=== PATIENT | male | born 1955 | race Caucasian/White ===

== ENCOUNTER → 2020-08-24 10:58 | Outpatient (BNVA) | payer OTHER, SELFPAY | PROVIDERS: PCP Internal Medicine; Visit Provider Urology ==

== ENCOUNTER 2022-12-08 13:01 | Outpatient (REF) | payer MEDICARE, SELFPAY ==
[2022-12-08 13:42] LABS: MANUAL DIFF FLAG NO
[2022-12-08 13:48] LABS: Basophils Percent Auto 0.4 % (0-2); Eosinophils Absolute Auto 0.1 X10*3/uL (0.0-0.4); Eosinophils Percent Auto 0.6 % (0-4); Hematocrit 39.5 % (42.0-52.0); Hemoglobin 12.6 g/dl (14.0-18.0); Imm Gran Abs Auto 0.03 X10*3/uL (0.00-0.03); Imm Gran Pct Auto 0.4 % (0.0-0.4); Lymphocytes Absolute Auto 1.2 X10*3/uL (1.2-4.9); Lymphocytes Percent Auto 13.9 % (20-40); Mean Corpuscular HGB Conc 31.9 g/dl (31.0-36.0); Mean Corpuscular Hemoglobin 21.1 pg (27.0-33.0); Mean Corpuscular Volume 66.2 fL (80.0-98.0); Monocytes Absolute Auto 0.7 X10*3/uL (0.1-1.2); Monocytes Percent Auto 8.2 % (2-11); Neutrophils Absolute Auto 6.6 x10*3/uL (2.0-8.3); Neutrophils Percent Auto 76.5 % (45-73); Platelet Count 138 X10*3/uL (160-400); Red Blood Count 5.97 X10*6/uL (4.60-5.80); White Blood Count 8.6 X10*3/uL (4.8-10.8)
== END 2022-12-08 13:02 | disposition home or self-care (01) ==
LOC: HO.BBR 13:01
PROVIDERS: PCP Internal Medicine; Visit Provider Hospitalist
DX: E83.110 Hereditary hemochromatosis (principal)
CPT/HCPCS: 36415; 85025

== ENCOUNTER 2023-02-04 10:56 | Outpatient (REF) | payer MEDICARE, SELFPAY ==
[2023-02-04 11:32] LABS: MANUAL DIFF FLAG NO
[2023-02-04 11:38] LABS: Basophils Percent Auto 0.5 % (0-2); Eosinophils Absolute Auto 0.1 X10*3/uL (0.0-0.4); Eosinophils Percent Auto 0.7 % (0-4); Hematocrit 42.1 % (42.0-52.0); Hemoglobin 13.5 g/dl (14.0-18.0); Imm Gran Abs Auto 0.02 X10*3/uL (0.00-0.03); Imm Gran Pct Auto 0.2 % (0.0-0.4); Lymphocytes Absolute Auto 1.6 X10*3/uL (1.2-4.9); Lymphocytes Percent Auto 19.2 % (20-40); Mean Corpuscular HGB Conc 32.1 g/dl (31.0-36.0); Mean Corpuscular Hemoglobin 21.1 pg (27.0-33.0); Mean Corpuscular Volume 65.8 fL (80.0-98.0); Monocytes Absolute Auto 0.8 X10*3/uL (0.1-1.2); Monocytes Percent Auto 9.1 % (2-11); Neutrophils Absolute Auto 5.8 x10*3/uL (2.0-8.3); Neutrophils Percent Auto 70.3 % (45-73); Platelet Count 153 X10*3/uL (160-400); Red Cell Distribution Width 17.4 % (11.0-16.0); White Blood Count 8.2 X10*3/uL (4.8-10.8)
[2023-02-04 12:20] LABS: Iron 173 mcg/dL (45-160); Percent Iron Saturation 66 % (15-50); Total Iron Binding Capacity 264 mcg/dL (228-428); Unsaturated Iron Binding 91 ug/dL
== END 2023-02-04 10:57 | disposition home or self-care (01) ==
LOC: HO.BBR 10:56
PROVIDERS: PCP Internal Medicine; Visit Provider Hospitalist
DX: E83.110 Hereditary hemochromatosis (principal)
CPT/HCPCS: 36415; 83540; 85025

== ENCOUNTER 2023-04-01 14:47 | Outpatient (REF) | payer MEDICARE, SELFPAY ==
[2023-04-01 15:09] LABS: MANUAL DIFF FLAG NO
[2023-04-01 15:14] LABS: Basophils Percent Auto 0.4 % (0-2); Eosinophils Absolute Auto 0.1 X10*3/uL (0.0-0.4); Eosinophils Percent Auto 1.2 % (0-4); Hematocrit 40.4 % (42.0-52.0); Hemoglobin 13.1 g/dl (14.0-18.0); Imm Gran Abs Auto 0.02 X10*3/uL (0.00-0.03); Imm Gran Pct Auto 0.3 % (0.0-0.4); Lymphocytes Absolute Auto 1.3 X10*3/uL (1.2-4.9); Lymphocytes Percent Auto 17.1 % (20-40); Mean Corpuscular HGB Conc 32.4 g/dl (31.0-36.0); Mean Corpuscular Hemoglobin 21.3 pg (27.0-33.0); Mean Corpuscular Volume 65.7 fL (80.0-98.0); Monocytes Absolute Auto 0.6 X10*3/uL (0.1-1.2); Monocytes Percent Auto 7.7 % (2-11); Neutrophils Absolute Auto 5.6 x10*3/uL (2.0-8.3); Neutrophils Percent Auto 73.3 % (45-73); Platelet Count 150 X10*3/uL (160-400); Red Blood Count 6.15 X10*6/uL (4.60-5.80); Red Cell Distribution Width 15.9 % (11.0-16.0); White Blood Count 7.7 X10*3/uL (4.8-10.8)
== END 2023-04-01 14:48 | disposition home or self-care (01) ==
LOC: HO.BBR 14:47
PROVIDERS: PCP Internal Medicine; Visit Provider Hospitalist
DX: E83.110 Hereditary hemochromatosis (principal)
CPT/HCPCS: 36415; 85025

== ENCOUNTER 2023-05-14 14:05 | Outpatient (REF) | payer MEDICARE, SELFPAY ==
[2023-05-14 14:26] LABS: MANUAL DIFF FLAG NO
[2023-05-14 14:29] LABS: Basophils Percent Auto 0.4 % (0-2); Eosinophils Absolute Auto 0.1 X10*3/uL (0.0-0.4); Eosinophils Percent Auto 1.1 % (0-4); Hematocrit 40.3 % (42.0-52.0); Hemoglobin 12.9 g/dl (14.0-18.0); Imm Gran Abs Auto 0.02 X10*3/uL (0.00-0.03); Imm Gran Pct Auto 0.3 % (0.0-0.4); Lymphocytes Absolute Auto 1.4 X10*3/uL (1.2-4.9); Lymphocytes Percent Auto 18.2 % (20-40); Mean Corpuscular Hemoglobin 21.4 pg (27.0-33.0); Mean Corpuscular Volume 66.9 fL (80.0-98.0); Monocytes Absolute Auto 0.7 X10*3/uL (0.1-1.2); Monocytes Percent Auto 9.4 % (2-11); Neutrophils Absolute Auto 5.3 x10*3/uL (2.0-8.3); Neutrophils Percent Auto 70.6 % (45-73); Platelet Count 154 X10*3/uL (160-400); Red Blood Count 6.02 X10*6/uL (4.60-5.80); Red Cell Distribution Width 17.4 % (11.0-16.0); White Blood Count 7.4 X10*3/uL (4.8-10.8)
[2023-05-14 15:19] LABS: Ferritin 416 ng/mL (20-250)
== END 2023-05-14 14:06 | disposition home or self-care (01) ==
LOC: HO.BBR 14:05
PROVIDERS: PCP Internal Medicine; Visit Provider Hospitalist
DX: E83.110 Hereditary hemochromatosis (principal)
CPT/HCPCS: 36415; 82728; 85025

== ENCOUNTER 2023-06-25 14:13 | Outpatient (REF) | payer MEDICARE, SELFPAY ==
[2023-06-25 14:35] LABS: MANUAL DIFF FLAG NO
[2023-06-25 14:39] LABS: Basophils Percent Auto 0.6 % (0-2); Eosinophils Absolute Auto 0.1 X10*3/uL (0.0-0.4); Eosinophils Percent Auto 1.5 % (0-4); Hematocrit 40.7 % (42.0-52.0); Hemoglobin 13.3 g/dl (14.0-18.0); Imm Gran Abs Auto 0.02 X10*3/uL (0.00-0.03); Imm Gran Pct Auto 0.3 % (0.0-0.4); Lymphocytes Absolute Auto 1.3 X10*3/uL (1.2-4.9); Lymphocytes Percent Auto 19.8 % (20-40); Mean Corpuscular HGB Conc 32.7 g/dl (31.0-36.0); Mean Corpuscular Hemoglobin 21.5 pg (27.0-33.0); Mean Corpuscular Volume 65.6 fL (80.0-98.0); Monocytes Absolute Auto 0.6 X10*3/uL (0.1-1.2); Monocytes Percent Auto 8.7 % (2-11); Neutrophils Absolute Auto 4.7 x10*3/uL (2.0-8.3); Neutrophils Percent Auto 69.1 % (45-73); Platelet Count 158 X10*3/uL (160-400); Red Cell Distribution Width 16.9 % (11.0-16.0); White Blood Count 6.8 X10*3/uL (4.8-10.8)
[2023-06-25 16:36] LABS: Iron 142 mcg/dL (45-160); Percent Iron Saturation 53 % (15-50); Total Iron Binding Capacity 269 mcg/dL (228-428); Unsaturated Iron Binding 127 ug/dL
[2023-06-25 16:47] LABS: Ferritin 422 ng/mL (20-250)
== END 2023-06-25 14:14 | disposition home or self-care (01) ==
LOC: HO.BBR 14:13
PROVIDERS: PCP Internal Medicine; Visit Provider Hospitalist
DX: E83.110 Hereditary hemochromatosis (principal)
CPT/HCPCS: 36415; 82728; 83540; 85025

== ENCOUNTER 2023-08-07 13:05 | Outpatient (REF) | payer MEDICARE, SELFPAY ==
[2023-08-07 13:38] LABS: Basophils Percent Auto 0.4 % (0-2); Eosinophils Absolute Auto 0.1 X10*3/uL (0.0-0.4); Eosinophils Percent Auto 1.2 % (0-4); Hematocrit 39.6 % (42.0-52.0); Hemoglobin 12.8 g/dl (14.0-18.0); Imm Gran Abs Auto 0.02 X10*3/uL (0.00-0.03); Imm Gran Pct Auto 0.3 % (0.0-0.4); Lymphocytes Absolute Auto 1.3 X10*3/uL (1.2-4.9); Lymphocytes Percent Auto 17.9 % (20-40); MANUAL DIFF FLAG SCAN; Mean Corpuscular HGB Conc 32.3 g/dl (31.0-36.0); Mean Corpuscular Hemoglobin 21.7 pg (27.0-33.0); Monocytes Absolute Auto 0.7 X10*3/uL (0.1-1.2); Neutrophils Absolute Auto 5.2 x10*3/uL (2.0-8.3); Neutrophils Percent Auto 71.2 % (45-73); PLT CLUMP 1; Red Blood Count 5.91 X10*6/uL (4.60-5.80); Red Cell Distribution Width 16.6 % (11.0-16.0); SCAN SMEAR FLAG 1
[2023-08-07 13:39] LABS: White Blood Count 7.3 X10*3/uL (4.8-10.8)
[2023-08-07 14:14] LABS: Platelet Count 147 X10*3/uL (160-400)
[2023-08-07 14:15] LABS: SLIDE REVIEW VERIFIED
[2023-08-07 14:53] LABS: Ferritin 352 ng/mL (20-250)
== END 2023-08-07 13:06 | disposition home or self-care (01) ==
LOC: HO.BBR 13:05
PROVIDERS: PCP Internal Medicine; Visit Provider Hospitalist
DX: E83.110 Hereditary hemochromatosis (principal)
CPT/HCPCS: 36415; 82728; 85025

== ENCOUNTER 2023-09-16 08:38 | Outpatient (REF) | payer MEDICARE, SELFPAY ==
--- NOTE | ~2023-09-16 | MM_ITS ---
EXAMINATION: BONE DENSITOMETRY CLINICAL INDICATION: Age-related osteoporosis without current pathological fracture. COMPARISON: This is the patient's baseline examination. TECHNIQUE: Using a [employer] DXA System (software version: 13.1) manufactured by [employer], dual-energy x-ray absorptiometry was performed of the lumbar spine and left hip. The images are of good technical quality. Summary results are attached. FINDINGS: LEFT FEMUR, NECK: BMD 1.020 g/cm2, Z-score 0.5, T-score -0.4, normal. LEFT FEMUR, TOTAL: BMD 1.113 g/cm2, Z-score 0.5, T-score 0.1, normal. AP SPINE L1-L4: BMD 1.131 g/cm2, Z-score -0.6, T-score -0.7, normal. IDENTIFIED RISK FACTORS: Low calcium intake. HISTORY OF FRACTURE: None listed. MEDICATIONS: Calcium supplements or multivitamin, vitamin D. MM/XR DEXA axial skeleton IMPRESSION: 1. DIAGNOSIS: Normal bone density based on the lowest T-score value of -0.7 in the lumbar spine applying World Health Organization criteria. 2. 10-YEAR FRACTURE RISK PREDICTION, FRAX: According to the guidelines, FRAX calculation should only be performed on patients in the osteopenia bone density category. Therefore, FRAX was not performed on this patient. 3. Treatment Recommendations: NOF guidelines recommend consideration for treatment in postmenopausal women and men age 50 and older presenting with the following: -A hip or vertebral (clinical or morphometric) fracture. -T-score less than or equal to -2.5 at the femoral neck or spine after appropriate evaluation to exclude secondary causes. -Low bone mass at the hip or spine and a 10-year fracture probability by FRAX of greater than or equal to 3% for hip fracture or greater than or equal to 20% for major osteoporotic fracture based on the [place] adapted WHO algorithm. 4. Other Recommendations: All treatment decisions require clinical judgment and consideration of individual patient factors, including patient preferences, comorbidities, previous drug use, risk factors not captured in the FRAX model (e.g. frailty, falls, vitamin D deficiency, increased bone turnover, interval significant decline in bone density) and possible under or overestimation of fracture risk by FRAX. FUTURE SCAN RECOMMENDATION: People with diagnosed cases of osteoporosis or at high risk for fracture should have regular bone mineral density tests. For patients eligible for Medicare, routine testing is allowed once every 2 years. The testing frequency can be increased to one year for patients who have rapidly progressing disease, those who are receiving or discontinuing medical therapy to restore bone mass, or have additional risk factors.
--- NOTE | 2023-09-16 09:41 | CA_ITS ---
Transthoracic Echocardiogram Patient (Last, First, Middle): Ben Santos, Gender: Male Date of : 1955 Age: 68 Procedure Date: 09/16/2023 Procedure Type: Transthoracic Echocardiogram Location: OP Height: 177.8 cm Weight: 87.09 kg BSA: 2.05 m2 Heart Rate: bpm BP: 135 / 70 mmHg Frit Mixer: JAYME Referring MD: Gustavo Felton MD Electro Optical Engineer: Stevan Hopson MD Symptoms: HEMOCHROMATOSIS ,OSTEOPOROSIS Study Quality: Adequate ECG Rhythm: Sinus Conclusions: - 1. Normal LV ejection fraction 55-60% with normal filling pattern 2. Normal cardiac valvular Doppler 3. No gross pericardial effusion Findings Left Ventricle Normal left ventricular size, thickness, and systolic function. The visually estimated ejection fraction is between 55-60%. Spectral Doppler is indicative of a normal filling pattern. Right Ventricle Normal right ventricular cavity size and systolic function. Atria The left atrium is normal in size. Interatrial shunt cannot be excluded. The right atrium is normal in size. Aortic Valve The aortic valve structure and function is likely normal. There is no aortic valve stenosis. There is no aortic valve regurgitation. Mitral Valve Likely normal mitral valve structure and function. There is trace mitral valve regurgitation. There is no mitral valve stenosis. Pulmonic Valve The pulmonic valve is likely normal. There is trace pulmonic valve regurgitation. Tricuspid Valve The tricuspid valve was not well visualized. Tricuspid regurgitation envelope is inadequate for calculation of right ventricular systolic pressure. Normal right atrial pressure. Great Vessels All visible segments of the aorta are normal in size. The pulmonary artery was not well visualized. There is no dilatation of the ascending aorta measuring 3.10 cm. Venous The inferior vena cava is normal in size and collapses greater than 50% with inspiration. Pericardium/Pleural There is no evidence of pericardial effusion. Prior Study Comparison No prior study available for comparison. Measurements 2D Linear Measurements IVSd: 0.93 0.6-0.9/0.6-1.0 cm LVIDd: 4.97 3.9-5.3/4.2-5.9 cm LVIDd Index: 2.42 2.4-3.2/2.2-3.1 cm/m2 LVIDs: 3.28 2.0-3.6 cm LVPWd: 1.00 0.7-1.1 cm LA Diam: 3.80 2.7-3.8/3.0-4.0 cm LAIDs Index: 1.85 1.5-2.3 cm/m2 LV Mass: 213.98 67-162/88-224 g LV Mass Index: 104.38 43-95/49-115 g/m2 LVOT Diam: 2.10 3.0+(-)1.3 cm 2D Systolic Function EF 4C: 59.60 >55% EF 2C: 58.60 >55% EF BiP: 57.40 >55% Mitral Valve MV Pk E: 0.71 MV PK A: 0.58 MV Decel Time: 216.00 E/A: 1.20 E'Lateral: 10.30 E'Medial: 7.94 E/E' Med: 8.90 E/E' Lat: 6.90 PHT: 63.00 MVA PHT: 3.49 Decel Sweet [place]: 3.27 Aortic Valve AoV Pk Dimas: 1.25 AoV Mn Dimas: 0.83 AoV VTI: 0.28 AoV Pk Grad: 6.00 Aov Mn Grad: 3.00 AMANDO Cont.VTI: 2.62 LVOT LVOT Pk Dimas: 0.80 LVOT Mn Dimas: 0.53 LVOT VTI: 0.21 LVOT Pk Grad: 3.00 LVOT Mn Grad: 1.00 LVOT Diam: 2.10 LVOT Area: 3.46 Diastolic Function MV Pk E: 0.71 MV Pk A: 0.58 E/A: 1.20 E'Medial: 7.94 E/E' Med: 8.90 E' Laterial: 10.30 E/E' Lat: 6.90 Right Ventricle TAPSE (mm): 26.70 TVS' Dimas: 12.30 Great Vessels Aorta Sinus of Valsalva: 3.07 2.0-3.5 cm Ao Asc: 3.10 2.1-3.4 cm Updated in Other Vendor System with Status of Final Stevan Hopson MD electronically signed on 09/16/2023 2:41:55 PM with status of Final
== END 2023-09-16 08:39 | disposition home or self-care (01) ==
LOC: HO.MAMMO 08:38
PROVIDERS: PCP Internal Medicine; Visit Provider Hospitalist
DX: E83.119 Hemochromatosis, unspecified (principal); M81.0 Age-related osteoporosis without current pathological fracture
CPT/HCPCS: 77080; 93306

== ENCOUNTER → 2023-09-16 09:41 | Outpatient (BNV) | payer MEDICARE, SELFPAY | PROVIDERS: PCP Internal Medicine; Visit Provider Internal Medicine Cardiovascular Disease | DX: E83.119 Hemochromatosis, unspecified (principal) | CPT/HCPCS: 93306 ==

== ENCOUNTER 2023-09-22 14:02 | Outpatient (REF) | payer MEDICARE, SELFPAY ==
[2023-09-22 14:19] LABS: MANUAL DIFF FLAG NO
[2023-09-22 14:22] LABS: Basophils Percent Auto 0.4 % (0-2); Eosinophils Absolute Auto 0.1 X10*3/uL (0.0-0.4); Eosinophils Percent Auto 1.5 % (0-4); Hematocrit 39.6 % (42.0-52.0); Hemoglobin 12.8 g/dl (14.0-18.0); Imm Gran Abs Auto 0.02 X10*3/uL (0.00-0.03); Imm Gran Pct Auto 0.3 % (0.0-0.4); Lymphocytes Absolute Auto 1.3 X10*3/uL (1.2-4.9); Lymphocytes Percent Auto 19.8 % (20-40); Mean Corpuscular HGB Conc 32.3 g/dl (31.0-36.0); Mean Corpuscular Hemoglobin 21.4 pg (27.0-33.0); Mean Corpuscular Volume 66.3 fL (80.0-98.0); Monocytes Absolute Auto 0.6 X10*3/uL (0.1-1.2); Monocytes Percent Auto 8.9 % (2-11); Neutrophils Absolute Auto 4.7 x10*3/uL (2.0-8.3); Neutrophils Percent Auto 69.1 % (45-73); Platelet Count 155 X10*3/uL (160-400); Red Blood Count 5.97 X10*6/uL (4.60-5.80); Red Cell Distribution Width 16.4 % (11.0-16.0); White Blood Count 6.8 X10*3/uL (4.8-10.8)
[2023-09-22 15:15] LABS: Ferritin 349 ng/mL (20-250)
== END 2023-09-22 14:03 | disposition home or self-care (01) ==
LOC: HO.BBR 14:02
PROVIDERS: PCP Internal Medicine; Visit Provider Hospitalist
DX: E83.110 Hereditary hemochromatosis (principal)
CPT/HCPCS: 36415; 82728; 85025

== ENCOUNTER 2023-11-13 14:02 | Outpatient (REF) | payer MEDICARE, SELFPAY ==
[2023-11-13 14:16] LABS: Eosinophils Absolute Auto 0.1 X10*3/uL (0.0-0.4); Hemoglobin 12.9 g/dl (14.0-18.0); Imm Gran Abs Auto 0.02 X10*3/uL (0.00-0.03); Imm Gran Pct Auto 0.3 % (0.0-0.4); MANUAL DIFF FLAG SCAN; Monocytes Absolute Auto 0.7 X10*3/uL (0.1-1.2); SCAN SMEAR FLAG 1
[2023-11-13 14:18] LABS: Basophils Percent Auto 0.3 % (0-2); Hematocrit 39.3 % (42.0-52.0); Lymphocytes Absolute Auto 1.3 X10*3/uL (1.2-4.9); Lymphocytes Percent Auto 18.7 % (20-40); Mean Corpuscular HGB Conc 32.8 g/dl (31.0-36.0); Mean Corpuscular Hemoglobin 21.8 pg (27.0-33.0); Mean Corpuscular Volume 66.4 fL (80.0-98.0); Monocytes Percent Auto 9.4 % (2-11); Neutrophils Absolute Auto 4.9 x10*3/uL (2.0-8.3); Neutrophils Percent Auto 70.3 % (45-73); PLT CLUMP 1; Red Blood Count 5.92 X10*6/uL (4.60-5.80)
[2023-11-13 14:19] LABS: PLT ABN DIST 1
[2023-11-13 14:41] LABS: Platelet Count 142 X10*3/uL (160-400); SLIDE REVIEW VERIFIED
[2023-11-13 15:16] LABS: Ferritin 283 ng/mL (20-250)
== END 2023-11-13 14:03 | disposition home or self-care (01) ==
LOC: HO.BBR 14:02
PROVIDERS: PCP Internal Medicine; Visit Provider Hospitalist
DX: E83.110 Hereditary hemochromatosis (principal)
CPT/HCPCS: 36415; 82728; 85025

== ENCOUNTER 2023-12-24 15:26 | Outpatient (REF) | payer MEDICARE, SELFPAY ==
[2023-12-24 15:45] LABS: MANUAL DIFF FLAG NO
[2023-12-24 15:52] LABS: Basophils Percent Auto 0.5 % (0-2); Eosinophils Absolute Auto 0.1 X10*3/uL (0.0-0.4); Eosinophils Percent Auto 0.9 % (0-4); Hematocrit 38.7 % (42.0-52.0); Hemoglobin 12.7 g/dl (14.0-18.0); Imm Gran Abs Auto 0.03 X10*3/uL (0.00-0.03); Imm Gran Pct Auto 0.4 % (0.0-0.4); Lymphocytes Absolute Auto 1.3 X10*3/uL (1.2-4.9); Lymphocytes Percent Auto 16.7 % (20-40); Mean Corpuscular HGB Conc 32.8 g/dl (31.0-36.0); Mean Corpuscular Hemoglobin 21.7 pg (27.0-33.0); Monocytes Absolute Auto 0.7 X10*3/uL (0.1-1.2); Monocytes Percent Auto 8.9 % (2-11); Neutrophils Absolute Auto 5.7 x10*3/uL (2.0-8.3); Neutrophils Percent Auto 72.6 % (45-73); Platelet Count 157 X10*3/uL (160-400); Red Blood Count 5.86 X10*6/uL (4.60-5.80); Red Cell Distribution Width 15.9 % (11.0-16.0); White Blood Count 7.9 X10*3/uL (4.8-10.8)
[2023-12-24 16:36] LABS: Ferritin 250 ng/mL (20-250)
== END 2023-12-24 15:27 | disposition home or self-care (01) ==
LOC: HO.BBR 15:26
PROVIDERS: PCP Internal Medicine; Visit Provider Hospitalist
DX: E83.110 Hereditary hemochromatosis (principal)
CPT/HCPCS: 36415; 82728; 85025

== ENCOUNTER 2024-02-11 13:06 | Outpatient (REF) | payer MEDICARE, SELFPAY ==
[2024-02-11 13:16] LABS: MANUAL DIFF FLAG NO
[2024-02-11 13:20] LABS: Basophils Absolute Auto 0.1 X10*3/uL (0.0-0.2); Basophils Percent Auto 0.7 % (0-2); Eosinophils Absolute Auto 0.1 X10*3/uL (0.0-0.4); Eosinophils Percent Auto 1.4 % (0-4); Hematocrit 42.9 % (42.0-52.0); Hemoglobin 13.8 g/dl (14.0-18.0); Imm Gran Abs Auto 0.02 X10*3/uL (0.00-0.03); Imm Gran Pct Auto 0.3 % (0.0-0.4); Lymphocytes Absolute Auto 1.5 X10*3/uL (1.2-4.9); Lymphocytes Percent Auto 20.7 % (20-40); Mean Corpuscular HGB Conc 32.2 g/dl (31.0-36.0); Mean Corpuscular Hemoglobin 21.4 pg (27.0-33.0); Mean Corpuscular Volume 66.6 fL (80.0-98.0); Monocytes Absolute Auto 0.6 X10*3/uL (0.1-1.2); Monocytes Percent Auto 8.9 % (2-11); Neutrophils Absolute Auto 4.8 x10*3/uL (2.0-8.3); Platelet Count 158 X10*3/uL (160-400); Red Blood Count 6.44 X10*6/uL (4.60-5.80); Red Cell Distribution Width 17.5 % (11.0-16.0); White Blood Count 7.1 X10*3/uL (4.8-10.8)
[2024-02-11 14:11] LABS: Ferritin 214 ng/mL (20-250)
--- OUTSIDE RECORDS SUMMARY | 2024-02-17 02:17 | XMS_ITS | Continuity of Care Document ---
Author Organization [facility] Address [address] [place] [address]- Care Team Providers Care Drilling Machine Operator Name Role Phone Devin Dent MD Primary Care Physician Encounter [facility] [id number] Date(s): 01/28/24 - 01/28/24 [facility] [address] [place] [address]- Encounter Type: Results Only Allergies, Adverse Reactions, Alerts Substance Criticality Severity Reaction Reaction Severity Status penicillins lips swell Active [place] migraine, vomiting A ctive Other Food Allergy MSG - angelika axel, vomiting Active Lactose Active Medications amLODIPine 10 mg oral tablet 10 mg, 1, tablet, By Mouth, Daily, # 30 tablet, Refills 0, Maintenance, 10/17/22 9:19:00 AM EDT, Partial fill upon patient request if the prescription is for a schedule II opioid drug. Start Date: 10/17/22 Status: Ordered Quantity: 30.0 Unit: tablet Repeat number: 1 Problem List Condition Confirmation Course Effective Dates Status H ealth Status Informant Beta thalassemia trait Confirmed Active Hereditary hemochromatosis Confirmed Active HTN (hypertension) Confirmed Active Social History Social History Type Response Smoking Status Never (less than 100 in lifetime) entered on: 10/17/22 Sex Sex Representation Male (finding) Patient Care team information Care Team Personnel Name: Devin Dent MD Position: S Physician - Primary Care Member Role: PCP Address: [address] [place] [address] Telecom: Care Team Related Persons Name: MALIHA CORTES Insurance Providers Guarantor name: ZURI CORTES Health Plan Information #: 1 Payer: [facility] [employer] ADV Member Number: NA Policy Number: NA Group Number: NA
== END 2024-02-11 13:07 | disposition home or self-care (01) ==
LOC: HO.BBR 13:06
PROVIDERS: PCP Internal Medicine; Visit Provider Hospitalist
DX: E83.110 Hereditary hemochromatosis (principal)
CPT/HCPCS: 36415; 82728; 85025

== ENCOUNTER 2024-03-29 14:02 | Outpatient (REF) | payer MEDICARE, SELFPAY ==
[2024-03-29 14:16] LABS: MANUAL DIFF FLAG NO
[2024-03-29 14:19] LABS: Basophils Percent Auto 0.5 % (0-2); Eosinophils Absolute Auto 0.1 X10*3/uL (0.0-0.4); Eosinophils Percent Auto 1.4 % (0-4); Hematocrit 42.8 % (42.0-52.0); Hemoglobin 13.7 g/dl (14.0-18.0); Imm Gran Abs Auto 0.02 X10*3/uL (0.00-0.03); Imm Gran Pct Auto 0.3 % (0.0-0.4); Lymphocytes Absolute Auto 1.6 X10*3/uL (1.2-4.9); Lymphocytes Percent Auto 21.1 % (20-40); Mean Corpuscular Hemoglobin 21.2 pg (27.0-33.0); Mean Corpuscular Volume 66.3 fL (80.0-98.0); Monocytes Absolute Auto 0.6 X10*3/uL (0.1-1.2); Monocytes Percent Auto 8.5 % (2-11); Neutrophils Percent Auto 68.2 % (45-73); Platelet Count 150 X10*3/uL (160-400); Red Blood Count 6.46 X10*6/uL (4.60-5.80); Red Cell Distribution Width 17.2 % (11.0-16.0); White Blood Count 7.4 X10*3/uL (4.8-10.8)
[2024-03-29 15:46] LABS: Ferritin 173 ng/mL (20-250)
--- OUTSIDE RECORDS SUMMARY | 2024-03-29 16:04 | XMS_ITS | Continuity of Care Document ---
Author Organization [facility] Address [address] [place] [address]- Care Team Providers Care Nut Chopper Name Role Phone Devin Dent MD Primary Care Physician [id number] Date[facility]s): [facility]25[facility]24 - 03/26/24 [facility] [address] [place] [phone]- Encounter Type: Triage Allergies, Adverse Reactions, Alerts Substance Criticality Severity Reaction Reaction Severity Status penicillins lips swell Active [place] migraine, vomiting A ctive Other Food Allergy [...] - Primary Care Member Role: PCP Address: [address] [place] [id number] [place] [address] Telecom: Care Team Related Persons Name: MALIHA CORTES Insurance Providers Guarantor name: ZURI CORTES Health Plan Information #: 1 Payer: [facility] ADV Member Number: NA Policy Number: NA Group Number: NA
--- OUTSIDE RECORDS SUMMARY | 2024-03-29 16:04 | XMS_ITS | Continuity of Care Document ---
Author Organization [facility] Address [address] [place] [address]- Care Team Providers Care Hand Developer Name Role Phone Devin Dent MD Primary Care Physician [phone] [place] [facility] [place]s): 02/19/24 - 03/20/24 [facility] [address] [place] [phone]- Attending Physician: Alexandria Mejía Admitting Physician: Alexandria Mejía Referring Physician: AdmtrAlexandria Encounter Type: Triage Allergies, Adverse Reactions, Alerts Substance Criticality Severity Reaction Reaction Severity Status penicillins lips swell Active [place] migraine, vomiting A ctive Other Food Allergy [...] on: 10/17/22 Sex Sex Representation Male (finding) Laboratory * Event Display: Non Lab Results Authored Date: Patient Care team information Care Team Personnel Name: Devin Dent MD Position: S Physician - Primary Care Member Role: PCP Address: [address] [place] [address] Telecom: Care Team Related Persons Name: MALIHA CORTES Insurance Providers Guarantor name: ZURI SEBASTIAN [facility] Plan Information #: 1 Payer: [facility] TER[facility] Member Number: NA Policy Number: NA Group Number: NA
== END 2024-03-29 14:03 | disposition home or self-care (01) ==
LOC: HO.BBR 14:02
PROVIDERS: PCP Internal Medicine; Visit Provider Hospitalist
DX: E83.110 Hereditary hemochromatosis (principal)
CPT/HCPCS: 36415; 82728; 85025

== ENCOUNTER 2024-05-10 14:02 | Outpatient (REF) | payer MEDICARE, SELFPAY ==
[2024-05-10 14:13] LABS: MANUAL DIFF FLAG NO
[2024-05-10 14:16] LABS: Basophils Absolute Auto 0.1 X10*3/uL (0.0-0.2); Basophils Percent Auto 0.5 % (0-2); Eosinophils Absolute Auto 0.1 X10*3/uL (0.0-0.4); Eosinophils Percent Auto 1.4 % (0-4); Hematocrit 41.8 % (42.0-52.0); Hemoglobin 13.6 g/dl (14.0-18.0); Imm Gran Abs Auto 0.03 X10*3/uL (0.00-0.03); Imm Gran Pct Auto 0.3 % (0.0-0.4); Lymphocytes Absolute Auto 1.7 X10*3/uL (1.2-4.9); Lymphocytes Percent Auto 17.3 % (20-40); Mean Corpuscular HGB Conc 32.5 g/dl (31.0-36.0); Mean Corpuscular Hemoglobin 21.5 pg (27.0-33.0); Mean Corpuscular Volume 66.1 fL (80.0-98.0); Monocytes Absolute Auto 0.8 X10*3/uL (0.1-1.2); Monocytes Percent Auto 8.1 % (2-11); Neutrophils Absolute Auto 6.9 x10*3/uL (2.0-8.3); Neutrophils Percent Auto 72.4 % (45-73); Platelet Count 170 X10*3/uL (160-400); Red Blood Count 6.32 X10*6/uL (4.60-5.80); Red Cell Distribution Width 17.6 % (11.0-16.0); White Blood Count 9.5 X10*3/uL (4.8-10.8)
[2024-05-10 15:16] LABS: Ferritin 145 ng/mL (20-250)
--- OUTSIDE RECORDS SUMMARY | 2024-05-10 17:44 | XMS_ITS | Clinical Summary ---
Author Organization [facility] Address [address] [place] [address] Phone Care Team Providers Care Baller Tender Name Role Phone Physician, Pcp Unknown Primary Care Provider Alisa vailable Encounters Date Type Department Care Team Description 05/04/2024 Lab Requisition [facility] - Main Lab [address] [facility] [email or web address] [address] Spencer Thacker MD Other microscopic hematuria from Last 3 Months Social History Tobacco Use Types Packs/Day Years Used Date Smoking Tobacco: Never Assessed Sex and Gender Information Value Date Recorded Sex Assigned at Not on file Legal Sex Male 1:35 PM EST Gender Identity Not on file Sexual Orientation Not on file Plan of Treatment Health Maintenance Due Date Last Done Comments DTaP,Tdap,and Td Vaccines (1 - Tdap) 01/17/1976 Pneumococcal Vaccine: 50+ Ye ars (1 of 1 - PCV) 2007 Zoster Vaccines (1 of 2) 2007 COVID-19 Vaccine ( - 2023-2 5 season) 2023 Influenza Vaccine (#1) 2023 Abdominal Aortic Aneurysm (A AA) Screen 05/05/2024 Cholesterol Screening (Lipid Panel) 05/05/2024 Colorectal Cancer Screening: Colonoscopy 05/05/2024 Depression Screening 05/05/2024 Falls Risk Assessment 05/05/2024 Hepatitis C Screening 05/05/2024 Medicare Annual Wellness Visit 05/05/2024 Social Influencers of Health Screening 05/05/2024 RSV Immunization Patients 60 + Years Old (1 - 1-dose 75+ series) 01/17/2032 HIB Vaccines Aged Out No longer eligi ble based on patient's age to complete this topic HPV Vaccines Aged Out No longer eligi ble based on patient's age to complete this topic Hepatitis A Vaccines Aged Out No long er eligible based on patient's age to complete this topic Hepatitis B Vaccines Aged Out No long er eligible based on patient's age to complete this topic IPV Vaccines Aged Out No longer eligi ble based on patient's age to complete this topic MMR Vaccines Aged Out No longer eligi ble based on patient's age to complete this topic Meningococcal ACWY Vaccine Aged Out N o longer eligible based on patient's age to complete this topic Meningococcal B Vacine Aged Out No lo nger eligible based on patient's age to complete this topic RSV Immunization Patients Un alycia 20 months Aged Out No longer eligible b ased on patient's age to complete this topic Varicella Vaccines Aged Out No longer eligible based on patient's age to complete this topic Insurance [employer] MEDICARE Care Teams Baller Tender Relationship Specialty Start Date End Date Physician, Pcp Unknown PCP - General 05/04/24
--- OUTSIDE RECORDS SUMMARY | 2024-05-10 17:44 | XMS_ITS | Encounter Summary ---
Author Organization [facility] Address [address] [place] [address] Care Team Providers Care Ergonomist Name Role Phone Physician, Pcp Unknown Primary Care Provider Alisa vailable Encounter Details Date Type Department Care Team (Late st Contact Info) Description 05/04/2024 Lab Requisition [facility] - Main Lab [address] [facility] [place] [address] Spencer Thacker MD [address] [place] [address] Other microscopic hematuria Social History Tobacco Use Types Packs/Day Years Used Date Smoking Tobacco: Never Assessed Sex and Gender Information Value Date Recorded Sex Assigned at Not on file Legal Sex Male 1:35 PM EST Gender Identity Not on file Sexual Orientation Not on file documented as of this encounter Plan of Treatment Pending Results Name Type Priority Associated Diagnoses Date /Time Anatomic pathology outside consult Pathology and Cytology Routine Other microscopic hematuria 05/03/2024 12:00 AM EST documented as of this encounter Visit Diagnoses Diagnosis Other microscopic hematuria documented in this encounter Care Teams Ergonomist Relationship Specialty Start Date End Date Physician, Pcp Unknown PCP - General 05/04/24 documented as of this encounter
== END 2024-05-10 14:03 | disposition home or self-care (01) ==
LOC: HO.BBR 14:02
PROVIDERS: PCP Internal Medicine; Visit Provider Hospitalist
DX: E83.110 Hereditary hemochromatosis (principal)
CPT/HCPCS: 36415; 82728; 85025

== ENCOUNTER 2024-06-29 14:06 | Outpatient (REF) | payer MEDICARE, SELFPAY ==
[2024-06-29 14:24] LABS: MANUAL DIFF FLAG NO
[2024-06-29 14:27] LABS: Basophils Percent Auto 0.4 % (0-2); Eosinophils Absolute Auto 0.1 X10*3/uL (0.0-0.4); Eosinophils Percent Auto 1.1 % (0-4); Hematocrit 40.6 % (42.0-52.0); Hemoglobin 13.2 g/dl (14.0-18.0); Imm Gran Abs Auto 0.04 X10*3/uL (0.00-0.03); Imm Gran Pct Auto 0.4 % (0.0-0.4); Lymphocytes Absolute Auto 1.7 X10*3/uL (1.2-4.9); Lymphocytes Percent Auto 17.7 % (20-40); Mean Corpuscular HGB Conc 32.5 g/dl (31.0-36.0); Mean Corpuscular Hemoglobin 21.2 pg (27.0-33.0); Mean Corpuscular Volume 65.1 fL (80.0-98.0); Monocytes Absolute Auto 0.8 X10*3/uL (0.1-1.2); Neutrophils Absolute Auto 6.9 x10*3/uL (2.0-8.3); Neutrophils Percent Auto 72.4 % (45-73); Platelet Count 152 X10*3/uL (160-400); Red Blood Count 6.24 X10*6/uL (4.60-5.80); Red Cell Distribution Width 17.2 % (11.0-16.0); White Blood Count 9.6 X10*3/uL (4.8-10.8)
[2024-06-29 15:16] LABS: Ferritin 174 ng/mL (20-250)
--- OUTSIDE RECORDS SUMMARY | 2024-06-29 17:00 | XMS_ITS | Encounter Summary ---
Author Organization [facility] Address [address] [place] [address] Care Team Providers Care Explosive Man Name Role Phone Physician, Pcp Unknown Primary Care Provider Alisa vailable Encounter Details Date Type Department Care Team (Late st Contact Info) Description 05/04/2024 Lab Requisition [facility] - Main Lab [address] [facility] [place] [address] Spencer Thacker MD [address] [facility] [address] [place] [address] Other microscopic hematuria Social History Tobacco Use Types Packs/Day Years Used Date Smoking Tobacco: Never Assessed Sex and Gender Information Value Date Recorded Sex Assigned at Not on file Legal Sex Male 1:35 PM EST Gender Identity Not on file Sexual Orientation Not on file documented as of this encounter Plan of Treatment Not on file documented as of this encounter Procedures Procedure Name Priority Date/Time Associated Diagnosis Comments AP OUTSIDE CONSULT Routine 05/03/2024 12 :00 AM EST Other microscopic hematuria documented in this encounter Results * Anatomic pathology outside consult (05/03/2024 12:00 AM EST) Final Diagnosis A. Urine, Voided, ([id number]): Negative for high grade urothelial carcinoma. Scant urothelial cells. 05/13/2024 9:26 AM EST [facility] Clinical Information Other microscopic hematuria R31.29 Urine cytology with reflex UroVysion (AUC/SHGUC) 05/13/2024 9:26 AM EST [facility] Gross Description A. Urine, Voided, ([id number]): Received is one ThinPrep slide for cytology. 05/13/2024 9:26 AM [facility] Disclaimer Unless otherwise specified, all tissue is 10% NB formalin fixed and paraffin embedded. Technical pathology services provided by [facility] at [address], [place] [address] (CLIA #[id number]/Sa radha Dunn MD, Director Of Hotel) 05/13/2024 9:26 AM [facility] Tissue Urine specimen from urethra / Unknown 05/03/2024 05/04/2024 3:38 PM EST us Spencer Thacker MD LAB PATHOLOGY ORDERABLES Fi nal Result [facility] [address] [place] [address], documented in this encounter Visit Diagnoses Diagnosis Other microscopic hematuria documented in this encounter Care Teams Explosive Man Relationship Specialty Start Date End Date Physician, Pcp Unknown PCP - General 05/04/24 documented as of this encounter
--- OUTSIDE RECORDS SUMMARY | 2024-06-29 17:00 | XMS_ITS | Clinical Summary ---
Author Organization [address] Address [address] [place] [phone] Phone Care Team Providers Care Cutlet Maker Pork Name Role Phone Physician, Pcp Unknown Primary Care Provider Alisa vailable Allergies Active Allergy Reactions Criticality Noted Date Comments Lactose 06/13/2024 Mold 06/13/2024 Tree And Shrub Pollen 06/13/2024 Medications amLODIPine (NORVASC) 10 mg tablet Take 1 tablet (10 mg total) by mouth 1 (one) time each day. 04/24/2024 Active multivitamin tablet Take 1 tablet by mouth 1 (one) time each day. Active polyethylene glycol (MIRALAX) 17 gram packetIndications :Chronic idiopathic constipation Take 17 g by mouth 1 (one) time each day. 1530 g 3 06/13/2024 06/14/19 26 Active hydrocortisone (ANUSOL-HC) 2.5 % rectal creamIndications: Rectal burning Insert into the rectum 2 (two) times a day for 10 days. 30 g 1 06/13/2024 Active Active Problems Problem Noted Date Diagnosed Date Adenomatous polyp of colon 06/13/2024 Hereditary hemochromatosis (CMS/HCC V24) 025 Irritable bowel syndrome wit h both constipation and diarrhea 06/13/2024 HTN (hypertension) 06/13/2024 Thalassemia minor 06/13/2024 Encounters Date Type Department Care Team Description 06/13/2024 1:50 PM EDT Office Visit Gastroenterology - [address] [place] [phone] Cecilia Hobbs PA Chronic idiopathic constipation (Primary Dx); Change in bowel movement; History of colon polyps; Family history of colon cancer; Rectal burning 06/13/2024 Telephone Gastroenterology - [address] [place] [address], [place] [address] Kashmir Palomares MD 05/04/2024 Lab Requisition [facility] - Main Lab [address] [facility] [place] [address] Spencer Thacker MD Other microscopic hematuria from Last 3 Months Surgical History Surgery Date Site/Laterality Comments COLONOSCOPY 10/07/2021 - 11/06/2021 sig tics, int rhoids (5 yr hx polyps/fhx rectal cancer) Dr. Palomares ESOPHAGOGASTRODUODENOSCOPY 09/06/2012 - 10/06/[address] Alvarado KNEE SURGERY Family History Medical History Relation Name Comments Colon cancer Maternal Grandfather Rectal cancer Mother Relation Name Status Comments Maternal Grandfather Mother Social History Tobacco Use Types Packs/Day Years Used Date Smoking Tobacco: Never Assessed Sex and Gender Information Value Date Recorded Sex Assigned at Not on file Legal Sex Male 1:35 PM EST Gender Identity Not on file Sexual Orientation Not on file Obstetrics History Last Filed Vital Signs Vital Sign Reading Time Taken Comments Blood Pressure - - Pulse - - Temperature - - Respiratory Rate - - Oxygen Saturation - - Inhaled Oxygen Concentration - - Weight 87.1 kg (192 lb) 06/13/2024 1:48 PM EDT Height 177.8 cm (5' 10 ) 06/13/2024 1:48 PM EDT Body Mass Index 27.55 06/13/2024 1:48 PM EDT Plan of Treatment Health Maintenance Due Date Last Done Comments DTaP,Tdap,and Td Vaccines (1 - Tdap) 01/17/1976 Pneumococcal Vaccine: 50+ Years (1 of 2 - PCV) 01/17/1976 Zoster Vaccines (1 of 2) 2007 RSV Immunization Adult Patients (1 - Risk 60-74 years 1-dose series) 2017 COVID-19 Vaccine (3 - 2023-2 5 season) 2023 04/03/2021, 03/13/2021 Abdominal Aortic Aneurysm (AAA) Screen 05/05/2024 Cholesterol Screening (Lipid Panel) 05/05/2024 Depression Screening 05/05/2024 Falls Risk Assessment 05/05/2024 Hepatitis C Screening 05/05/2024 Medicare Annual Wellness Visit 05/05/2024 Social Influencers of Health Screening 05/05/2024 Hypertension/CHF/CAD Annual BMP Blood Test 06/13/2024 Influenza Vaccine (Season Ended) 2024 Colorectal Cancer Screening: Colonoscopy 10/10/2031 10/09/2021, 11/23/2017, 09/23/2012 HIB Vaccines Aged Out No longer eligi [...] age to complete this topic Meningococcal B Vaccine Aged Out No l onger eligible based on patient's age to complete this topic RSV Immunization Patients Under 20 months Aged Out No longer eligible b ased on patient's age to complete this topic Varicella Vaccines Aged Out No longer eligible based on patient's age to complete this topic Procedures Procedure Name Priority Date/Time Associated Diagnosis Comments AP OUTSIDE CONSULT Routine 05/03/2024 12 :00 AM EST Other microscopic hematuria EXTERNAL COLONOSCOPY REPORT Routine 10/09/2021 4:07 PM EDT from Last 3 Months or Most Recently Relevant to Health Maintenance Results * Anatomic pathology outside consult (05/03/2024 12:00 AM EST) Final Diagnosis A. Urine, Voided, ([id number]): Negative for high grade urothelial carcinoma. Scant urothelial cells. 05/13/2024 9:26 AM EST [facility] Clinical Information Other microscopic hematuria R31.29 Urine cytology with reflex UroVysion (AUC/SHGUC) 05/13/2024 9:26 AM EST [facility] Gross Description A. Urine, Voided, ([id number]): Received is one ThinPrep slide for cytology. 05/13/2024 9:26 AM EST [facility] Disclaimer Unless otherwise specified, all tissue is 10% NB formalin fixed and paraffin embedded. Technical pathology services provided by [facility] at [address], [place] [address] (CLIA #[id number]/Sa radha Dunn MD, Tire Balancer) 05/13/2024 9:26 AM EST [facility] Tissue Urine specimen from urethra / Unknown 05/03/2024 05/04/2024 3:38 PM EST Spencer Thacker MD LAB PATHOLOGY ORDERABLES Fi nal Result [facility] [address] [place] [address], * External Colonoscopy Report (10/09/2021 4:07 PM EDT) Anatomical Region Laterality Modality Endoscopy Historical Provider GI~PROCEDURE ORDERABLES F inal Result from Last 3 Months or Most Recently Relevant to Health Maintenance Insurance [employer] MEDICARE Care Teams Cutlet Maker Pork Relationship Specialty Start Date End Date Physician, Pcp Unknown PCP - General 05/04/24
== END 2024-06-29 14:07 | disposition home or self-care (01) ==
LOC: HO.BBR 14:06
PROVIDERS: Visit Provider Hospitalist
DX: E83.110 Hereditary hemochromatosis (principal)
CPT/HCPCS: 36415; 82728; 85025

== ENCOUNTER 2024-08-11 14:05 | Outpatient (REF) | payer MEDICARE, SELFPAY ==
--- OUTSIDE RECORDS SUMMARY | 2024-08-11 16:43 | XMS_ITS | Encounter Summary ---
Author Organization [facility] [address] Address [address] [place] [address] Care Team Providers Care Radiation Engineer Name Role Phone Physician, Pcp Unknown Primary Care Provider Alisa vailable Encounter Details Date Type Department Care Team (Late st Contact Info) Description 05/04/2024 Lab Requisition [facility] - Main Lab [address] [facility] [place] [address] Spencer Thacker MD [address] [facility] [address] [place] [address] Other microscopic hematuria Social History Tobacco Use [...] AM EST) Final Diagnosis A. Urine, Voided, ([id number]): Negative for high grade urothelial carcinoma. Scant urothelial cells. 05/13/2024 9:26 AM EST [facility] Clinical Information Other microscopic hematuria R31.29 Urine cytology with reflex UroVysion (AUC/SHGUC) 05/13/2024 9:26 AM EST [facility]) [facility] Gross Description A. Urine, Voided, ([id number]): Received is one ThinPrep slide for cytology. 05/13/2024 9:26 AM [facility] Disclaimer Unless otherwise specified, all tissue is 10% NB formalin fixed and paraffin embedded. Technical pathology services provided by [facility]rology at [address], [place] [address] (CLIA #[id number]/Sa radha Dunn MD, Debubblizer) 05/13/2024 9:26 AM [facility] Tissue Urine specimen from urethra / Unknown 05/03/2024 05/04/2024 3:38 PM EST us Spencer Thacker MD LAB PATHOLOGY ORDERABLES Fi nal Result [facility] [address] [place] [address], documented in this encounter Visit Diagnoses Diagnosis Other microscopic hematuria documented in this encounter Care Teams Radiation Engineer Relationship Specialty Start Date End Date Physician, Pcp Unknown PCP - General 05/04/24 documented as of this encounter
== END 2024-08-11 14:06 | disposition home or self-care (01) ==
LOC: HO.BBR 14:05
PROVIDERS: PCP Internal Medicine; Visit Provider Hospitalist
DX: Z13.89 Encounter for screening for other disorder (principal)

== ENCOUNTER 2024-11-11 13:56 | Outpatient (REF) | payer MEDICARE, SELFPAY ==
--- OUTSIDE RECORDS SUMMARY | 2024-11-11 14:24 | XMS_ITS | Encounter Summary ---
Author Organization [facility] Address [address] [place] [address] Care Team Providers Care Business Unit Controller Name Role Phone Physician, Pcp Unknown Primary Care Provider Alisa vailable Encounter Details Date Type Department Care Team (Late st Contact Info) Description 10/20/2024 Lab Requisition [facility] - Main Lab 299 [facility] [place] [address] Spencer Thacker MD [address] [facility] [address] [place], [place] [id number] Other microscopic hematuria Social History Tobacco Use [...] Procedure Name Priority Date/Time Associated Diagnosis Comments NON-GYNECOLOGIC CYTOLOGY Routine 10/17/2024 12:00 AM EDT Other microscopic hematuria documented in this encounter Results * Non-gynecologic cytology (10/17/2024 12:00 AM EDT) Final Diagnosis A. Urine, Voided, ([id number]): Negative for high grade urothelial carcinoma. Acute inflammatory cells are present. 11/10/2024 4:04 PM EDT [facility]) [facility] Specimen A Adequacy Satisfactory for evaluation 11/10/2024 4:04 PM EDT [facility] Clinical Information Other microscopic hematuria R31.29 Urine cytology with reflex UroVysion (AUC/SHGUC) 11/10/2024 4:04 PM EDT [facility] Gross Description A. Urine, Voided, ([id number]): Received one ThinPrep slide for cytology. 11/10/2024 4:04 PM EDT [facility] Disclaimer Unless otherwise specified, all tissue is 10% NB formalin fixed and paraffin embedded. Technical pathology services provided by [facility] [address] [place] [address] (CLIA #[id number]/Michael Dunn MD, Game Technician) 11/10/2024 4:04 PM EDT [facility] Urine Urine specimen from urethra / Unknown 10/17/2024 10/20/2024 1:31 PM EDT us Spencer Thacker MD LAB CYTOLOGY ORDERABLES Fin al Result [facility] [address] [place] [address], documented in this encounter Visit Diagnoses Diagnosis Other microscopic hematuria documented in this encounter Care Teams Business Unit Controller Relationship Specialty Start Date End Date Physician, Pcp Unknown PCP - General 05/04/24 documented as of this encounter
--- OUTSIDE RECORDS SUMMARY | 2024-11-11 14:24 | XMS_ITS | Clinical Summary ---
Author Organization [facility] [address] [facility] Address [address] [place] [address] Phone Care Team Providers Care Appeals Representative Name Role Phone Physician, Pcp Unknown Primary Care Provider Alisa vailable Allergies Active Allergy Reactions Criticality Noted Date Comments Lactose 06/13/2024 Mold 06/13/2024 Tree And Shrub Pollen 06/13/2024 Medications amLODIPine (NORVASC) 10 mg tablet Take 1 tablet (10 mg total) by mouth 1 (one) time each day. 5 Active multivitamin tablet Take 1 tablet by mouth 1 (one) time each day. Active polyethylene glycol (MIRALAX) 17 gram packetIndication s:Chronic idiopathic constipation Take 17 g by mouth 1 (one) time each day. 1530 g 3 5 026 Active hydrocortisone (ANUSOL-HC) 2.5 % rectal creamIndications :Rectal burning Insert into the rectum 2 (two) times a day for 10 days. 30 g 1 5 Active polyethylene glycol (Golytely) 236-22.74-6.74 -5.86 gram solution Take 4L by mouth once for one dose. May substitue any PEG. Starting at 6PM the night before your procedure drink 1 8oz glasses at your own pace until you complete half of the gallon. Finish 2nd half of the gallon 5 hours before your procedure. 4000 mL 5 Active bisacodyL (DULCOLAX) 5 mg EC tablet Take 2 tablets by mouth right before beginning bowel prep. See instructions provided by the office 2 tablet 5 Active Active Problems Problem Noted Date Diagnosed Date Adenomatous polyp of colon 06/13/2024 Hereditary hemochromatosis (CMS/HCC V24) 025 Irritable bowel syndrome wit h both constipation and diarrhea 06/13/2024 HTN (hypertension) 06/13/2024 Thalassemia minor 06/13/2024 Encounters Date Type Department Care Team Description 10/20/2024 Lab Requisition [facility] - Main Lab 299 [facility] [place] [address] Spencer Thacker MD Other microscopic [...] 60-74 years 1-dose series) 2017 COVID-19 Vaccine ( - season) 2023 04/03/2021, 03/13/2021 Depression Screening 03/09/2024 Abdominal Aortic Aneurysm (AAA) Screen 05/05/2024 Cholesterol Screening (Lipid Panel) 05/05/2024 Falls Risk Assessment 05/05/2024 Hepatitis C Screening 05/05/2024 Medicare Annual Wellness Visit 05/05/2024 Social Influencers of Health Screening 05/05/2024 Hypertension/CHF/CAD Annual BMP Blood Test 06/13/2024 Influenza Vaccine (#1) 2024 Colorectal Cancer Screening: Colonoscopy 08/03/2034 08/03/2024, 10/09/2021, 11/23/2017, Additional history exists HIB Vaccines Aged Out No longer eligi [...] 20 months Aged Out No longer eligible based on patient's age to complete this topic Varicella Vaccines Aged Out No longer eligible based on patient's age to complete this topic Procedures Procedure Name Priority Date/Time Associated Diagnosis Comments NON-GYNECOLOGIC CYTOLOGY Routine 10/17/2024 12:00 AM EDT Other microscopic hematuria EXTERNAL COLONOSCOPY REPORT Routine 08/03/2024 9:43 AM EDT from Last 3 Months or Most Recently Relevant to Health Maintenance Results * Non-gynecologic cytology (10/17/2024 12:00 AM EDT) Final Diagnosis A. Urine, Voided, ([id number]): Negative for high grade urothelial carcinoma. Acute inflammatory cells are present. 11/10/2024 4:04 PM EDT [facility] Specimen A Adequacy Satisfactory for evaluation 11/10/2024 4:04 PM EDT [facility]) [facility] Clinical Information Other microscopic hematuria R31.29 Urine cytology with reflex UroVysion ([facility]) 11/10/2024 4:04 PM EDT [facility] Gross Description A. Urine, Voided, ([id number]): Received one ThinPrep slide for cytology. 11/10/2024 4:04 PM EDT [facility] Disclaimer Unless otherwise specified, all tissue is 10% NB formalin fixed and paraffin embedded. Technical pathology services provided by [facility]rology at [address], [place] [address] (CLIA #[id number]/Michael Dunn MD, Car Body Designer) 11/10/2024 4:04 PM EDT [facility] Urine Urine specimen from urethra / Unknown 10/17/2024 10/20/2024 1:31 PM EDT Spencer Thacker MD LAB CYTOLOGY ORDERABLES Fin al Result Performing Organization Address City/State/[facility] Co de Phone Number [facility]) [facility] [address] [place] [address], * External Colonoscopy Report (08/03/2024 9:43 AM EDT) Anatomical Region Laterality Modality Endoscopy Historical Provider GI~PROCEDURE ORDERABLES F inal Result from Last 3 Months or Most Recently Relevant to Health Maintenance Insurance [facility] MEDICARE Care Teams Appeals Representative Relationship Specialty Start Date End Date Physician, Pcp Unknown PCP - General 05/04/24
--- OUTSIDE RECORDS SUMMARY | 2024-11-11 14:24 | XMS_ITS | Encounter Summary ---
Author Organization [facility] Address [address] [place] [address] Care Team Providers Care Actuarial Manager Name Role Phone Physician, Pcp Unknown Primary Care Provider Alisa vailable Encounter Details Date Type Department Care Team (Late st Contact Info) Description 05/04/2024 Lab Requisition [facility] - Main Lab [address] [facility] [place] [address] Spencer Thacker MD [address] [facility] [address] [place] [address] Other microscopic hematuria Social History Tobacco Use [...] AM EST) Final Diagnosis A. Urine, Voided, ([id number]): Negative for high grade urothelial carcinoma. Scant urothelial cells. 05/13/2024 9:26 AM EST [facility] Clinical Information Other microscopic hematuria R31.29 Urine cytology with reflex UroVysion (AUC/SHGUC) 05/13/2024 9:26 AM EST [facility]) [facility] Gross Description A. Urine, Voided, ([id number]): Received is one ThinPrep slide for cytology. 05/13/2024 9:26 AM [facility] Disclaimer Unless otherwise specified, all tissue is 10% NB formalin fixed and paraffin embedded. Technical pathology services provided by [facility] at [address], [place] [address] (CLIA #[id number]/Sa radha Dunn MD, Parts Facilitator) 05/13/2024 9:26 AM [facility] Tissue Urine specimen from urethra / Unknown 05/03/2024 05/04/2024 3:38 PM EST us Spencer Thacker MD LAB PATHOLOGY ORDERABLES Fi nal Result [facility] [address] [place] [address], documented in this encounter Visit Diagnoses Diagnosis Other microscopic hematuria documented in this encounter Care Teams Actuarial Manager Relationship Specialty Start Date End Date Physician, Pcp Unknown PCP - General 05/04/24 documented as of this encounter
[2024-11-11 14:42] LABS: Hematocrit 39.7 % (42.0-52.0); Hemoglobin 13.1 g/dl (14.0-18.0); Imm Gran Pct Auto 0.4 % (0.0-0.4); MANUAL DIFF FLAG NO; Mean Corpuscular HGB Conc 33.0 g/dl (31.0-36.0); Mean Corpuscular Hemoglobin 21.2 pg (27.0-33.0); NRBC Pct Auto 0.0 /100WBC (0.0-0.2); Platelet Count 141 X10*3/uL (160-400); Red Blood Count 6.18 X10*6/uL (4.60-5.80); White Blood Count 8.2 X10*3/uL (4.8-10.8)
[2024-11-11 14:43] LABS: Imm Gran Abs Auto 0.03 X10*3/uL (0.00-0.03); Lymphocytes Absolute Auto 1.3 X10*3/uL (1.2-4.9); Mean Corpuscular Volume 64.2 fL (80.0-98.0); NRBC Abs Auto 0.000 X10*3/uL (0.0-0.012)
== END 2024-11-11 13:57 | disposition home or self-care (01) ==
LOC: HO.BBR 13:56
PROVIDERS: PCP Internal Medicine; Visit Provider Hospitalist
DX: E83.110 Hereditary hemochromatosis (principal)
CPT/HCPCS: 36415; 85025